=== PATIENT | male | born 1980 | race Two or more races ===

== ENCOUNTER 2019-01-08 15:50 | Emergency (ER) | payer SELFPAY ==
[~2019-01-08] VITALS: Ht 182.9 cm; Wt 74.8 kg
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
[2019-01-08] MEDS ORDERED: HYDROCODONE/APAP 5/325MG 1 EACH TABLET PO ONE (16:30)
--- NOTE | 2019-01-08 16:30 | NUR ---
PT TO XRAY VIA [facility].
[2019-01-08] MEDS ORDERED: HYDROCODONE/APAP 5/325MG 1 EACH TABLET ONE (16:31)
--- NOTE | 2019-01-08 17:00 | NUR ---
PT BACK FROM RADIOLOGY DEPT. MEDICATED ORDERED BY ELY, PT MAINE WELL & WILL CONT TO MONITOR.
--- NOTE | 2019-01-08 18:46 | NUR ---
Patient discharged to home in stable condition. Written and verbal after care instructions given. Patient verbalizes understanding of instruction.
[2019-01-08 18:47] VITALS: BP 120/78
== END 2019-01-08 18:48 | disposition home or self-care (01) ==
LOC: ER 15:50
DX: S16.1XXA Strain of muscle, fascia and tendon at neck level, initial encounter (principal); S40.011A Contusion of right shoulder, initial encounter; S50.01XA Contusion of right elbow, initial encounter; S60.512A Abrasion of left hand, initial encounter; S60.511A Abrasion of right hand, initial encounter; R51 Headache; E11.9 Type 2 diabetes mellitus without complications; E03.9 Hypothyroidism, unspecified; V49.49XA Driver injured in collision with other motor vehicles in traffic accident, initial encounter; Y93.89 Activity, other specified; Y92.413 State road as the place of occurrence of the external cause; Y99.8 Other external cause status
CPT/HCPCS: 70450-TC; 71045-TC; 72125-TC; 73030-TC; 73060-TC; 73080-TC